=== PATIENT | male | born 1995 | race Caucasian/White ===

== ENCOUNTER 2020-11-06 02:11 | Emergency (ER) | payer OTHER, SELFPAY ==
[2020-11-06 02:12] VITALS: BP 153/88; PULSE 107; RESP 18; TEMP 36.4; O2SAT 100; BMI 40.7
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
[2020-11-06] MEDS: Rabies Immune Globulin/PF 300 UNIT/ML, 5 ML VIAL 2730 UNIT IM (03:00)
[2020-11-06] MEDS: Rabies Vaccine,Human Diploid 2.5 UNITS Vial IM (03:05)
== END 2020-11-06 03:14 | disposition home or self-care (01) ==
LOC: ED 02:57
PROVIDERS: Emergency Provider Emergency Medicine; PCP Family Medicine
DX: S41.151A Open bite of right upper arm, initial encounter (principal); Z20.3 Contact with and (suspected) exposure to rabies; Z23 Encounter for immunization; W55.81XA Bitten by other mammals, initial encounter; Y93.9 Activity, unspecified; Y92.009 Unspecified place in unspecified non-institutional (private) residence as the place of occurrence of the external cause; Y99.9 Unspecified external cause status; F41.9 Anxiety disorder, unspecified
CPT/HCPCS: 90375; 90675; 96372; 99282

== ENCOUNTER → 2020-11-09 13:46 | Outpatient (CLI) | payer OTHER, SELFPAY ==
[2020-11-06 02:12] VITALS: BMI 40.7
[2020-11-09 13:47] VITALS: BP 180/90; PULSE 110; RESP 16; TEMP 36.9; O2SAT 99
[2020-11-09] MEDS: Rabies Vaccine,Human Diploid 2.5 UNITS Vial IM (14:12)
== END ==
PROVIDERS: PCP Family Medicine
DX: Z29.14 Encounter for prophylactic rabies immune globulin (principal); Z20.3 Contact with and (suspected) exposure to rabies
CPT/HCPCS: 36592; 90675

== ENCOUNTER 2020-11-13 13:21 | Outpatient (CLI) | payer OTHER, SELFPAY ==
[2020-11-13 13:23] VITALS: BP 158/99; PULSE 82; RESP 18; TEMP 36.6; O2SAT 99; BMI 42.7
[2020-11-13] MEDS: Rabies Vaccine,Human Diploid 2.5 UNITS Vial IM (13:40)
== END 2020-11-13 14:45 | disposition home or self-care (01) ==
LOC: EDREF 11-14 07:18
PROVIDERS: PCP Family Medicine
DX: Z23 Encounter for immunization (principal)
CPT/HCPCS: 90675; 96372

== ENCOUNTER 2020-11-20 13:43 | Outpatient (CLI) | payer OTHER, SELFPAY ==
[2020-11-20 14:14] VITALS: BP 138/62; PULSE 94; RESP 18; TEMP 37.1; O2SAT 95
[2020-11-20] MEDS: Rabies Vaccine,Human Diploid 2.5 UNITS Vial IM (14:15)
== END 2020-11-20 15:00 | disposition home or self-care (01) ==
LOC: ED 15:11
PROVIDERS: PCP Family Medicine
DX: Z23 Encounter for immunization (principal)
CPT/HCPCS: 90675; 96372